=== PATIENT | male | born 1960 | race Caucasian/White ===

== ENCOUNTER 2024-04-27 15:44 | Emergency (ER) | payer OTHER ==
[~2024-04-27] VITALS: Ht 154.9 cm; Wt 78.4 kg
[2024-04-27 15:48] VITALS: PULSE 98
[2024-04-27 15:57] VITALS: BP 167/108; RESP 16; TEMP 98.7; O2SAT 98
[2024-04-27] MEDS: ACETAMINOPHEN 325MG TABLET PO ONE (17:16)
== END 2024-04-27 17:41 | disposition home or self-care (01) ==
LOC: ER 15:44
DX: S09.90XA Unspecified injury of head, initial encounter (principal); F31.9 Bipolar disorder, unspecified; E78.00 Pure hypercholesterolemia, unspecified; I10 Essential (primary) hypertension; M54.50 Low back pain, unspecified; X58.XXXA Exposure to other specified factors, initial encounter; Y93.89 Activity, other specified; Y92.89 Other specified places as the place of occurrence of the external cause; Y99.8 Other external cause status
CPT/HCPCS: 99284